=== PATIENT | female | born 1980 | race Caucasian/White ===

== ENCOUNTER 2017-06-01 12:01 | Emergency (ER) | payer OTHER ==
[2017-06-01 12:09] VITALS: BP 126/70; PULSE 76; TEMP 98
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
--- NOTE | 2017-06-02 11:38 | PDOC ---
History of Present Illness - General Chief Complaint: RX Refill Stated Complaint: RX REFILL Time Seen by Provider: 06/01/17 12:36 Past History - Past Medical History Allergies/Adverse Reactions: Allergies Allergy/AdvReac Type Severity Reaction Status Date / Time No Known Allergies Allergy Unverified 06/01/17 12:09 Home Medications: Ambulatory Orders Buprenorphine HCl [Subutex -] 8 mg SL QID #20 tab MDD 32 mg 06/01/17 Psychiatric Problems: Yes (BIPOLAR) - Surgical History Abdominal Surgery: Yes (HERNIA) - Psycho/Social/Smoking Cessation Hx Suicidal Ideation: No Smoking History: Current some day smoker Number of Cigarettes Smoked Daily: 0 Information on smoking cessation initiated: No Substance Use Type: Opiates *Physical Exam - Vital Signs Last Vital Signs Temp Pulse Resp BP Pulse Ox 98 F 76 18 126/70 100 06/01/17 12:05 06/01/17 12:05 06/01/17 12:05 06/01/17 12:05 06/01/17 12:05 *DC/Admit/Observation/Transfer Diagnosis at time of Disposition: Medication refill - Discharge Dispostion Disposition: HOME Condition at time of disposition: Stable - Prescriptions Prescriptions: Buprenorphine HCl [Subutex -] 8 mg SL QID #20 tab MDD 32 mg - Referrals Referrals: Tex Mayo [Primary Care Provider] - - Patient Instructions Printed Discharge Instructions: DI for Prescription Opioid Use, Buprenorphine Sublingual and Buccal (opioid dependence) Additional Instructions: F/u with Dr. Bailey when possible to obtain terminal computer operator medication treatment. Good luck settling in to your new area. Sorry this happened to you. I hope everything works out and please don't forget to lock your door. Print Language: PASHTO - Post Discharge Activity
== END 2017-06-01 14:11 | disposition home or self-care (01) ==
LOC: JER 12:01 → JERFT 12:01 → JER 14:11
DX: F11.20 Opioid dependence, uncomplicated (principal); F31.9 Bipolar disorder, unspecified
CPT/HCPCS: 99281-25